=== PATIENT | female | born 1960 | race Caucasian/White ===

== ENCOUNTER → 2024-12-12 | Outpatient (CLI) | payer BC, SELFPAY ==
[2024-12-12 10:37] LABS: Collection Type, Urine Clean Catch
[2024-12-12 11:23] LABS: Basophils # (Auto) 0.1 Thou/mm3 (0.0-0.2); Basophils % (Auto) 1 % (0-2.5); Eosinophils # (Auto) 0.3 Thou/mm3 (0.0-0.5); Eosinophils % (Auto) 5 % (0-10); Hematocrit 40.4 % (36.0-46.0); Hemoglobin 13.5 g/dL (12.0-16.0); Immature Granulocytes % (Auto) 0 % (0-0); Immature Granulocytes Auto 0.02 Thou/mm3 (0.00-0.00); Lymphocytes # (Auto) 2.1 Thou/mm3 (1.0-4.8); Lymphocytes % (Auto) 32 % (10-50); Mean Corpuscular HGB Conc 33.4 g/dl (31.0-37.0); Mean Corpuscular Hemoglobin 29.9 pg (25.0-35.0); Mean Corpuscular Volume 90 fL (80-100); Monocytes # (Auto) 0.5 Thou/mm3 (0.0-0.8); Monocytes % (Auto) 7 % (0-12); Neutrophils # (Auto) 3.5 Thou/mm3 (1.8-7.7); Neutrophils % (Auto) 54 % (37-80); Nucleated Red Blood Cell % 0 /100 WBC (0); Platelet Count 449 Thou/mm3 (140-440); RDW Standard Deviation 41.6 fL (36.4-46.3); Red Blood Count 4.51 Miln/mm3 (4.00-5.20); White Blood Count 6.5 Thou/mm3 (3.6-11.0)
[2024-12-12 11:30] LABS: Bilirubin,Urine Negative (Negative); Blood,Urine Trace (Negative); Color,Urine Yellow (Lt Yel-Yel); Glucose, Urine Negative (Negative); Ketones,Urine Negative (Negative); Leukocyte Esterase,Urine Positive (Negative); Nitrite,Urine Negative (Negative); Protein,Urine 1+ (Neg - Trace); RBC,Urine 53 /hpf (0-3); Specific Gravity,Urine 1.019 (1.001-1.035); Squamous Epithelial Cell,Urine 12 /hpf (0-5); Urobilinogen,Urine Negative mg/dL (0.0-1.0); WBC,Urine 1147 /hpf (0-5)
[2024-12-12 11:33] LABS: Clarity,Urine Hazy (Clear/Hazy)
[2024-12-12 11:35] LABS: Glucose Estimated Average 131 mg/dL (80-131); Hemoglobin A1C 6.2 % Hgb (4.8-6.0)
[2024-12-12 11:49] LABS: Alanine Aminotransferase 52 U/L (10-49); Albumin, Serum 4.9 gm/dL (3.4-4.8); Albumin/Globulin Ratio 2.3 (1.2-2.2); Alkaline Phosphatase 48 U/L (46-116); Anion Gap 8 (7-16); Aspartate Amino Transferase 29 U/L (0-34); BUN/Creatinine Ratio 19 Ratio (12-20); Bilirubin,Total 0.4 mg/dL (0.3-1.2); Blood Urea Nitrogen 13 mg/dL (9-23); Calcium 9.7 mg/dL (8.3-10.6); Calcium (Corrected) 9.7 mg/dL (8.5-10.1); Carbon Dioxide 27.1 mMol/L (20.0-31.0); Cardiac Risk Estimate 3.4 RATIO (3.7-5.6); Chloride 104 mMol/L (98-107); Cholesterol 140 mg/dL (132-200); Creatinine (Component) 0.7 mg/dL (0.6-1.3); Free T4 (Free Thyroxine) 1.07 ng/dL (0.89-1.76); Globulin 2.1 gm/dL (2.3-3.5); Glucose 114 mg/dL (74-106); HDL Cholesterol 41 mg/dL (40-60); LDL Cholesterol,Calculated 52 mg/dL (0-130); Osmolality,Calculated 278 (275-295); Potassium 4.6 mMol/L (3.4-5.1); Sodium 139 mMol/L (136-145); Thyroid Stimulating Hormone 1.11 uIU/mL (0.55-4.78); Triglycerides 235 mg/dL (30-150); Uric Acid 6.4 mg/dL (3.1-7.8); eGFR > 60 See Note
[2024-12-12 11:51] LABS: Follicle Stimulating Hormone 43.84 mIU/mL (See Note); Vitamin B12 568 pg/mL (211-911); Vitamin D 25 Hydroxy Total 22.5 ng/mL (7.3-40.2)
[2024-12-18 06:42] LABS: Estrogen, Total, Serum* 69 pg/mL; Luteinizing Hormone* 19.3 mIU/mL; Progesterone,LC/MS* <0.1 ng/mL
== END | disposition home or self-care (01) ==
LOC: COPL 10:09
PROVIDERS: PCP Internal Medicine; Referring Provider Internal Medicine; Visit Provider Internal Medicine
DX: Z00.00 Encounter for general adult medical examination without abnormal findings (principal)
CPT/HCPCS: 36415; 80053; 80061; 81001; 82306; 82607; 82672; 83001; 83002; 83036; 84144; 84439; 84443; 84550; 85025

== ENCOUNTER → 2025-01-07 | Outpatient (CLI) | payer BC, SELFPAY ==
--- NOTE | 2025-01-07 12:40 | XR_ITS ---
Examination: Bone densitometry Date and time of exam:January 07, 2025 1245 hours INDICATIONS: Hysterectomy age 45 vitamin D 3 weeks, family history, father hip fracture Technique: Lumbar spine and hip total bone mineralization values of an calculated. Peak reference and age match control results have been displayed. Findings: Lumbar spine total bone mineralization is1.149 gm/cm2. This is 0.9 standard deviations above peak reference. This is 2.7 standard deviations above age-matched controls. Hip total bone mineralization is 0.969 gm/cm2 This is 0.2 standard deviations above peak reference. This is 1.4 standard deviations above age-matched controls Impression: There is normal mineralization based on lumbar spine measurements. There is normal mineralization based on hip measurements Lumbar mineralization is increased 1.0% compared with November 22, 2021 Hip mineralization is increased 1.3% compared with November 22, 2021
--- NOTE | 2025-01-07 13:00 | XR_ITS ---
Examination: Screening digital mammography, bilateral Computer aided detection 3-D breast Tomosynthesis, bilateral Date and time of exam: January 07, 2025 1249 hrs. Compared to mammograms dating to March 22, 2015 Indication: Screening Technique: Nonmagnified MLO, CC views of the breasts to been obtained, reconstructed from 3-D Tomosynthesis images. R2 computer aided detection program utilized for evaluation of suspicious masses and/or abnormal calcifications. 3-D Tomosynthesis images obtained. Findings: Scattered areas of fibroglandular density. Benign calcifications. No interval suspicious masses Impression: BI-RADS category II: Benign Findings. Recommend 1 year follow-up mammogram.
== END | disposition home or self-care (01) ==
PROVIDERS: PCP Internal Medicine; Referring Provider Internal Medicine; Visit Provider Internal Medicine
DX: Z12.31 Encounter for screening mammogram for malignant neoplasm of breast (principal); R92.323 Mammographic fibroglandular density, bilateral breasts; R92.1 Mammographic calcification found on diagnostic imaging of breast; M81.0 Age-related osteoporosis without current pathological fracture
CPT/HCPCS: 77063; 77067; 77080

== ENCOUNTER 2025-01-21 07:55 | Day surgery (SDC) | payer BC, SELFPAY ==
[2025-01-20 12:23] VITALS: BMI 31.7
[2025-01-21] VITALS (10 sets, daily range): BP systolic 107–131; BP diastolic 68–94; PULSE 60–74; RESP 12–17; TEMP 36.5–37.2; O2SAT 91–99; BMI 32.0
[2025-01-21] MEDS: SODIUM CHLORIDE 0.9% 500 ML 500 ML 20 ML IV (09:49)
[2025-01-21] MEDS: DiphenhydrAMINE INJ 50 MG/ML VIAL 25 MG IV (09:50)
[2025-01-21] MEDS: fentaNYL CIT INJ 50 mCg/ML AMP 2ML (ASD USE ONLY) IV (09:51)
[2025-01-21] MEDS: MIDAZOLAM INJ 1 MG/ML VIAL 2 ML (ASD USE ONLY) 2 MG IV (09:53)
[2025-01-21] MEDS: ONDANSETRON INJ 2 MG/ML INJ 2 ML 4 MG IV (10:02)
== END 2025-01-21 10:50 | disposition home or self-care (01) ==
PROVIDERS: PCP Internal Medicine; Referring Provider Specialist; Visit Provider Specialist
PROC: 0DBE8ZX Excision of Large Intestine, Via Natural or Artificial Opening Endoscopic, Diagnostic (ICD-10-PCS; CPT 45380; principal; 2025-01-21 09:00)
DX: Z12.11 Encounter for screening for malignant neoplasm of colon (principal); K64.9 Unspecified hemorrhoids; K57.30 Diverticulosis of large intestine without perforation or abscess without bleeding
CPT/HCPCS: 45378; J1200; J2250; J2405; J3010; J7040

== ENCOUNTER → 2025-01-26 | Outpatient (CLI) | payer BC, SELFPAY ==
[2025-01-26 11:17] LABS: Collection Type, Urine Clean Catch
[2025-01-26 11:58] LABS: Bilirubin,Urine Negative (Negative); Blood,Urine Negative (Negative); Clarity,Urine Clear (Clear/Hazy); Color,Urine Lt-Yellow (Lt Yel-Yel); Culture Indicated,Urine Not Indicated; Glucose, Urine Negative (Negative); Ketones,Urine Negative (Negative); Leukocyte Esterase,Urine Positive (Negative); Nitrite,Urine Negative (Negative); Protein,Urine Negative (Neg - Trace); RBC,Urine 1 /hpf (0-3); Specific Gravity,Urine 1.015 (1.001-1.035); Squamous Epithelial Cell,Urine 2 /hpf (0-5); Urobilinogen,Urine Negative mg/dL (0.0-1.0); WBC,Urine 2 /hpf (0-5)
== END | disposition home or self-care (01) ==
LOC: SLDO 10:55
PROVIDERS: PCP Internal Medicine; Referring Provider Internal Medicine; Visit Provider Internal Medicine
DX: N39.0 Urinary tract infection, site not specified (principal)
CPT/HCPCS: 81001

== ENCOUNTER → 2025-05-28 | Outpatient (CLI) | payer MEDICARE, SELFPAY ==
[2025-05-28 10:35] LABS: Basophils # (Auto) 0.1 Thou/mm3 (0.0-0.2); Basophils % (Auto) 1 % (0-2.5); Eosinophils # (Auto) 0.2 Thou/mm3 (0.0-0.5); Eosinophils % (Auto) 3 % (0-10); Hematocrit 38.1 % (36.0-46.0); Hemoglobin 12.6 g/dL (12.0-16.0); Immature Granulocytes Auto 0.01 Thou/mm3 (0.00-0.00); Lymphocytes # (Auto) 2.0 Thou/mm3 (1.0-4.8); Lymphocytes % (Auto) 33 % (10-50); Mean Corpuscular HGB Conc 33.1 g/dl (31.0-37.0); Mean Corpuscular Hemoglobin 29.7 pg (25.0-35.0); Mean Corpuscular Volume 90 fL (80-100); Monocytes # (Auto) 0.5 Thou/mm3 (0.0-0.8); Monocytes % (Auto) 7 % (0-12); Neutrophils # (Auto) 3.4 Thou/mm3 (1.8-7.7); Neutrophils % (Auto) 55 % (37-80); Nucleated Red Blood Cell # 0.00 Thou/mm3 (0.00-0.00); Nucleated Red Blood Cell % 0 /100 WBC (0); Platelet Count 424 Thou/mm3 (140-440); RDW Standard Deviation 41.5 fL (36.4-46.3); Red Blood Count 4.24 Miln/mm3 (4.00-5.20); White Blood Count 6.1 Thou/mm3 (3.6-11.0)
[2025-05-28 10:44] LABS: Glucose Estimated Average 105 mg/dL (80-131); Hemoglobin A1C 5.3 % Hgb (4.8-6.0)
[2025-05-28 10:44] LABS: Collection Type, Urine Clean Catch
[2025-05-28 10:59] LABS: Alanine Aminotransferase 30 U/L (10-49); Albumin, Serum 4.4 gm/dL (3.4-4.8); Albumin/Globulin Ratio 1.8 (1.2-2.2); Alkaline Phosphatase 29 U/L (46-116); Anion Gap 4 (7-16); Aspartate Amino Transferase 27 U/L (0-34); BUN/Creatinine Ratio 19 Ratio (12-20); Bilirubin,Total 0.4 mg/dL (0.3-1.2); Blood Urea Nitrogen 15 mg/dL (9-23); Calcium 8.9 mg/dL (8.3-10.6); Calcium (Corrected) 8.9 mg/dL (8.5-10.1); Carbon Dioxide 28.0 mMol/L (20.0-31.0); Cardiac Risk Estimate 3.1 RATIO (3.7-5.6); Chloride 109 mMol/L (98-107); Cholesterol 120 mg/dL (132-200); Creatinine (Component) 0.8 mg/dL (0.6-1.3); Globulin 2.4 gm/dL (2.3-3.5); Glucose 101 mg/dL (74-106); HDL Cholesterol 39 mg/dL (40-60); LDL Cholesterol,Calculated 57 mg/dL (0-130); Osmolality,Calculated 282 (275-295); Potassium 4.8 mMol/L (3.4-5.1); Sodium 141 mMol/L (136-145); Total Protein 6.8 gm/dL (5.7-8.2); Triglycerides 118 mg/dL (30-150); eGFR > 60 See Note
[2025-05-28 11:44] LABS: Bacteria,Urine Rare; Bilirubin,Urine Negative (Negative); Blood,Urine Negative (Negative); Color,Urine Yellow (Lt Yel-Yel); Culture Indicated,Urine Contaminated; Glucose, Urine Negative (Negative); Hyaline Casts,Urine < 1 /hpf (0-1); Ketones,Urine Negative (Negative); Leukocyte Esterase,Urine Positive (Negative); Nitrite,Urine Negative (Negative); PH,Urine 6.0 (5.0-7.0); Protein,Urine Negative (Neg - Trace); RBC,Urine 10 /hpf (0-3); Specific Gravity,Urine 1.019 (1.001-1.035); Squamous Epithelial Cell,Urine 14 /hpf (0-5); Urobilinogen,Urine Negative mg/dL (0.0-1.0); WBC,Urine 310 /hpf (0-5)
[2025-05-28 11:50] LABS: Clarity,Urine Hazy (Clear/Hazy)
== END | disposition home or self-care (01) ==
PROVIDERS: PCP Internal Medicine; Referring Provider Internal Medicine; Visit Provider Internal Medicine
DX: R73.03 Prediabetes (principal)
CPT/HCPCS: 36415; 80053; 80061; 81001; 83036; 85025